=== PATIENT | female | born 1985 | race Caucasian/White ===

== ENCOUNTER 2024-02-09 12:54 | Outpatient (CLI) | payer BC, SELFPAY ==
[2024-02-09 13:30] VITALS: BP 123/83; PULSE 93
[2024-02-09 13:45] VITALS: BP 113/73; PULSE 94
[2024-02-09 13:50] LABS: Basophils Percent Auto 0.3 % (0.2-1.2); Eosinophils Absolute Auto 0.1 K/mm3 (0-0.3); Eosinophils Percent Auto 0.7 % (0-4.4); Hematocrit 32.2 % (37.0-47.0); Hemoglobin 10.4 g/dL (12.0-15.0); Immature Granulocyte Absolute 0.05 K/mm3 (0.00-0.031); Immature Granulocyte Percent A 0.5 % (0-0.5); Lymphocytes Absolute Auto 1.42 K/mm3 (0.9-3.2); Lymphocytes Percent Auto 14.7 % (18.3-44.2); Mean Corpuscular HGB Conc 32.3 g/dl (32-36); Mean Corpuscular Hemoglobin 29.4 pg (26-34); Mean Platelet Volume 9.4 fl (7.4-10.4); Monocytes Absolute Auto 1.1 K/mm3 (0.1-0.6); Neutrophils Percent Auto 72.8 % (45.5-73.1); Platelet Count Result 246 k/mm3 (150-375); Red Blood Count 3.54 M/mm3 (4.2-5.4); Red Cell Distribution Width 12.3 % (11.5-14.5); White Blood Count 9.7 K/mm3 (4.5-10.0)
[2024-02-09 13:51] LABS: Appearance Urine Clear (Clear); Bilirubin Urine Negative (Negative); Blood Urine Negative (Negative); Color Urine Yellow (Yellow); Glucose Urine UA Negative (Negative); Ketones Urine Negative (Negative); Leukocyte Esterase Ur Negative LEU/UL (Negative); Nitrate Urine Negative (Negative); Protein Urine Negative (Negative); Specific Grav Ur 1.024 (1.001-1.035); Urobilinogen Urine 0.2 mg/dL (<2.0); pH Urine 6.5 (5.0-9.0)
[2024-02-09 13:54] LABS: Add Urine Microscopic? NO
[2024-02-09 14:00] LABS: Alanine Aminotransferase 10 U/L (6-35); Albumin Level 3.5 g/dL (3.5-5.1); Alkaline Phosphatase 249 U/L (38-126); Anion Gap 5 mmol/L (4-12); Aspartate Amino Transferase 19 U/L (14-36); Bilirubin,Total 0.9 mg/dL (0.2-1.3); Blood Urea Nitrogen 7 mg/dL (7-17); Calcium 8.2 mg/dL (8.4-10.2); Carbon Dioxide 21 mmol/L (22-30); Chloride 109 mmol/L (98-107); Estimated Glomerular Filt Rate > 60; Glucose 102 mg/dL (65-110); Potassium 3.7 mmol/L (3.4-5.0); Sodium 135 mmol/L (137-145); Uric Acid 4.2 mg/dL (2.5-7.5)
[2024-02-09 14:36] LABS: Creatinine Urine 145.5 mg/dL
[2024-02-09 14:45] LABS: Total Protein Urine Random < 5 mg/dL; Ur Ttl Prot Creatinine Ratio < 0.03 mg/mg (0-0.20)
[2024-02-09 14:46] VITALS: BP 123/88; PULSE 93
--- NOTE | 2024-02-09 14:56 | PM.OBTRLD ---
OB - Triage/Final Diagnosis Visit Information Date of evaluation: 02/09/24 Reason for evaluation: other ( pruritus) Comments/Additional reasons for admission: I have assessed the risk for this patient, Linda Lauren, and determined that she would benefit from observation care. Evaluation Laboratory results: Laboratory Tests 02/09/24 02/09/24 13:39 13:40 WBC 9.7 RBC 3.54 L Hgb 10.4 L Hct 32.2 L MCV 91.0 MCH 29.4 MCHC 32.3 RDW 12.3 Plt Count 246 MPV 9.4 Immature Gran % (Auto) 0.5 Neut % (Auto) 72.8 Lymph % (Auto) 14.7 L [place] % (Auto) 11.0 H Eos % (Auto) 0.7 Baso % (Auto) 0.3 Lymph # (Auto) 1.42 [place] # (Auto) 1.1 H Eos # (Auto) 0.1 Baso # (Auto) 0.0 Abs Immat Gran (auto) 0.05 H Absolute Neuts (auto) 7.0 H Absolute Nucleated RBC 0.000 Nucleated RBC % 0.0 Sodium 135 L Potassium 3.7 Chloride 109 H Carbon Dioxide 21 L Anion Gap 5 BUN 7 Creatinine 0.50 L Estim Creat Clear Calc Not Reportable Estimated GFR > 60 Glucose 102 Uric Acid 4.2 Calcium 8.2 L Total Bilirubin 0.9 AST 19 ALT 10 Alkaline Phosphatase 249 H Total Protein 6.0 L Albumin 3.5 Urine Color Yellow Urine Appearance Clear Urine pH 6.5 Ur Specific [place] 1.024 Urine Protein Negative Urine Glucose (UA) Negative Urine Ketones Negative Ur Blood (Man) Negative Urine Nitrate Negative Urine Bilirubin Negative Urine Urobilinogen 0.2 Leukocyte Esterase Rfl Negative U Random Total Protein < 5 Urine Creatinine 145.5 Protein/Creat Ratio 2 < 0.03 Vital signs: Vital Signs - 24 hr 02/09/24 13:30 02/09/24 13:45 02/09/24 14:46 Pulse Rate 93 94 93 Blood Pressure 123/83 113/73 Blood Pressure [Left Arm] 123/88
--- NOTE | 2024-02-09 15:51 | PC.NURSE ---
Pt here with c/o itching all over. Also, states she has a history of pre-eclampsia with no high blood pressures or symptoms with this . Dr. Dolores Oliva notified and orders received for labs and NST.
[2024-02-16 14:43] LABS: Chenodeoxycholic Acid 0.7 umol/L (< OR = 3.9); Cholic Acid 1.1 umol/L (< OR = 2.8); Deoxycholic Acid 0.9 umol/L (< OR = 2.3); Total Bile Acids 2.7 umol/L (< OR = 8.3)
== END 2024-02-09 14:50 | disposition home or self-care (01) ==
LOC: ANHOBOP 13:12 → ANHLDR 13:19
PROVIDERS: Visit Provider Obstetrics & Gynecology
DX: O13.9 Gestational [pregnancy-induced] hypertension without significant proteinuria, unspecified trimester (principal)
CPT/HCPCS: 36415; 59025; 80053; 81003; 82542; 82570; 84156; 84550; 85025; 99199

== ENCOUNTER 2024-03-06 22:46 | Inpatient (IN) | payer BC, SELFPAY ==
[2024-03-07] VITALS (230 sets, daily range): BP systolic 67–141; BP diastolic 26–94; PULSE 37–155; RESP 12–16; TEMP 36.3–36.8; O2SAT 84–100; BMI 29.7
[2024-03-07] MEDS: AMPICILLIN 2 GM/NS 100 ML 2 GM/100 ML BAG IVPB (00:15)
[2024-03-07 00:32] LABS: Basophils Percent Auto 0.5 % (0.2-1.2); Eosinophils Percent Auto 0.5 % (0-4.4); Hematocrit 32.3 % (37.0-47.0); Hemoglobin 10.7 g/dL (12.0-15.0); Immature Granulocyte Absolute 0.05 K/mm3 (0.00-0.031); Immature Granulocyte Percent A 0.6 % (0-0.5); Lymphocytes Absolute Auto 1.73 K/mm3 (0.9-3.2); Lymphocytes Percent Auto 19.6 % (18.3-44.2); Mean Corpuscular HGB Conc 33.1 g/dl (32-36); Mean Corpuscular Hemoglobin 28.9 pg (26-34); Mean Corpuscular Volume 87.3 fl (80-100); Mean Platelet Volume 10.4 fl (7.4-10.4); Monocytes Absolute Auto 0.7 K/mm3 (0.1-0.6); Monocytes Percent Auto 8.3 % (2.6-8.5); Neutrophils Absolute Auto 6.3 K/mm3 (1.3-6.7); Neutrophils Percent Auto 70.5 % (45.5-73.1); Platelet Count Result 236 k/mm3 (150-375); Red Cell Distribution Width 13.3 % (11.5-14.5); White Blood Count 8.8 K/mm3 (4.5-10.0)
[2024-03-07] MEDS: LACTATED RINGERS 1,000 ML 125 ML IV CONT (00:53)
--- NOTE | 2024-03-07 00:59 | P.PNAN_ITS ---
Anes - Eval Pre Procedure Procedure: labor epidural Date/Time: 03/07/24 00:59 Surgeon: katie Preop Diagnosis: pain during labor Pre Op Diagnosis: Contractions Patient Data Age: 38 Gender: F Height: Weight: Last Vital Signs Pulse 80 03/07/24 00:46 BP 123/69 03/07/24 00:46 Pulse Ox 99 03/07/24 00:54 Allergies Allergy/AdvReac Type Severity Reaction Status Date / Time metoclopramide [From [facility]] AdvReac Anxiety Verified 02/22/24 15:40 Home Medications Medication Instructions Recorded Confirmed Type buspirone 10 mg tablet 10 mg PO TID PRN Anxiety 02/22/24 02/22/24 History escitalopram oxalate 20 mg tablet 20 mg PO DAILY 02/22/24 02/22/24 History (Lexapro) famotidine 40 mg tablet (Pepcid) 40 mg PO DAILY 02/22/24 02/22/24 History Laboratory Tests 03/07/24 00:23 WBC 8.8 K/mm3 (4.5-10.0) RBC 3.70 L M/mm3 (4.2-5.4) Hgb 10.7 L g/dL (12.0-15.0) Hct 32.3 L % (37.0-47.0) MCV 87.3 fl (80-100) MCH 28.9 pg (26-34) MCHC 33.1 g/dl (32-36) RDW 13.3 % (11.5-14.5) Plt Count 236 k/mm3 (150-375) MPV 10.4 fl (7.4-10.4) Immature Gran % (Auto) 0.6 H % (0-0.5) Neut % (Auto) 70.5 % (45.5-73.1) Lymph % (Auto) 19.6 % (18.3-44.2) [place] % (Auto) 8.3 % (2.6-8.5) Eos % (Auto) 0.5 % (0-4.4) Baso % (Auto) 0.5 % (0.2-1.2) Lymph # (Auto) 1.73 K/mm3 (0.9-3.2) [place] # (Auto) 0.7 H K/mm3 (0.1-0.6) Eos # (Auto) 0.0 K/mm3 (0-0.3) Baso # (Auto) 0.0 K/mm3 (0.0-0.1) Abs Immat Gran (auto) 0.05 H K/mm3 (0.00-0.031) Absolute Neuts (auto) 6.3 K/mm3 (1.3-6.7) Absolute Nucleated RBC 0.000 K/mm3 (0.0-0.012) Nucleated RBC % 0.0 % (0.0-0.2) RPR Pending HIV 1&2 Ab/P24 Ag 4thGn Pending Patient hx anesthesia problems: none Family hx anesthesia problems: none Results Review: All pre-operative results and documents have been reviewed as part of the pre- operative evaluation. [facility] Past Medical History Medical History (Updated 03/07/24 @ 00:59 by Heaven Jiang CRNA) IUP (intrauterine ), incidental Family History Family History (Updated 02/22/24 @ 15:44 by Padmini Ochoa RN) Father Diabetes mellitus Hypertension Social History Social History Substance use: never Spiritual care concerns: No Exam Day of Procedure 03/07/24 00:59
[2024-03-07 01:24] LABS: HIV 1/2 Ab P24 Ag Result Negative (Negative)
[2024-03-07] MEDS: AMPICILLIN 1 GM/NS 50 ML 1 GM/50 ML BAG IVPB ×3 (04:05→12:00)
--- NOTE | 2024-03-07 05:27 | PM.IMHP ---
H&P: HPI History of Present Illness Date/Time: 03/07/24 05:27 Chief Complaint: active Labor term positive blood B strep Narrative: 38 year 3 para 3023 with last menstrual period is 06/12/2023 EDC is 7 presents in active labor at 38 weeks gestation active labor. She is positive for group B strep was relatively uncomplicated. She is anemic and is below issue for. She takes amlodipine Lexapro daily well as 2 or. [facility] Past Medical History Medical History IUP (intrauterine ), incidental Family History Family History Father Diabetes mellitus Hypertension Social History Social History Smoking status: Never smoker Substance use: never Do You Feel Safe in your Home?: Yes Lack of Transportation: No Lack of Food: Sometimes True Current Housing: I Have Housing Concerned About Future Housing: No Difficulty Paying Gas/Electric Bills: No Difficulty Paying for Meds: No Currently Unemployed: No Education: Bachelor's Degree Difficulty w/ Childcare or Family Care: No Spiritual care concerns: No Meds Home Medications and Allergies Home Medications Medication Instructions Recorded Confirmed Type buspirone 10 mg tablet 10 mg PO TID PRN Anxiety 02/22/24 03/07/24 History escitalopram oxalate 20 mg tablet 20 mg PO DAILY 02/22/24 03/07/24 History (Lexapro) famotidine 40 mg tablet (Pepcid) 40 mg PO DAILY 02/22/24 03/07/24 History Allergies Allergy/AdvReac Type Severity Reaction Status Date / Time metoclopramide [From Reglan] AdvReac Anxiety Verified 03/07/24 01:28 Vital Signs Vital Signs - 24 hr 03/07/24 00:29 03/07/24 00:34 03/07/24 00:39 Temperature Pulse Rate 78 Blood Pressure 111/72 Pulse Oximetry 98 99 99 Oxygen Delivery 03/07/24 00:44 03/07/24 00:46 03/07/24 00:49 Temperature Pulse Rate 80 Blood Pressure 123/69 Pulse Oximetry 99 99 Oxygen Delivery 03/07/24 00:54 03/07/24 01:01 03/07/24 01:02 Temperature Pulse Rate 76 Blood Pressure 134/79 Pulse Oximetry 99 100 Oxygen Delivery 03/07/24 01:03 03/07/24 01:05 03/07/24 01:07 Temperature Pulse Rate 74 76 Blood Pressure 101/79 134/75 Pulse Oximetry 100 Oxygen Delivery 03/07/24 01:08 03/07/24 01:11 03/07/24 01:12 Temperature Pulse Rate 75 77 Blood Pressure 124/80 132/73 Pulse Oximetry 100 Oxygen Delivery 03/07/24 01:13 03/07/24 01:16 03/07/24 01:17 Temperature Pulse Rate 86 83 Blood Pressure 119/94 H 119/74 Pulse Oximetry 95 Oxygen Delivery 03/07/24 01:18 03/07/24 01:21 03/07/24 01:22 Temperature Pulse Rate 94 84 Blood Pressure 103/71 99/67 L Pulse Oximetry 100 Oxygen Delivery 03/07/24 01:23 03/07/24 01:26 03/07/24 01:27 Temperature Pulse Rate 81 75 Blood Pressure 104/65 119/72 Pulse Oximetry 98 Oxygen Delivery 03/07/24 01:28 03/07/24 01:31 03/07/24 01:32 Temperature Pulse Rate 74 74 Blood Pressure 123/64 114/70 Pulse Oximetry 97 Oxygen Delivery 03/07/24 01:34 03/07/24 01:35 03/07/24 01:37 Temperature Pulse Rate 79 72 Blood Pressure 87/50 L 114/70 Pulse Oximetry 100 Oxygen Delivery 03/07/24 01:38 03/07/24 01:41 03/07/24 01:42 Temperature Pulse Rate 87 70 Blood Pressure 113/73 111/70 Pulse Oximetry 100 Oxygen Delivery 03/07/24 01:43 03/07/24 01:46 03/07/24 01:52 Temperature Pulse Rate 108 H Blood Pressure 112/55 L Pulse Oximetry 100 100 Oxygen Delivery 03/07/24 01:57 03/07/24 01:57 03/07/24 02:01 Temperature Pulse Rate 80 Blood Pressure 108/36 L Pulse Oximetry 100 100 Oxygen Delivery 03/07/24 02:02 03/07/24 02:07 03/07/24 02:12 Temperature Pulse Rate Blood Pressure Pulse Oximetry 100 99 99
[2024-03-07] MEDS: FAMOTIDINE 20 MG/2 ML VIAL IV PUSH (05:50)
[2024-03-07] MEDS: diphenhydrAMINE HCl INJ 50 MG/ML VIAL 25 MG IV PUSH (06:14)
--- NOTE | 2024-03-07 08:08 | PM.OBPNLAB ---
Pain Control Date/time seen: 03/07/24 08:08 Pain control: tolerating well and epidural Pelvic Exam Dilation (cm): 4 Effacement (%): 90 station: -2 Amniotic membrane status: Leaking
[2024-03-07] MEDS: OXYTOCIN 30 UNITS/NS 500 ML 30 UNITS/500 ML BAG IV CONT (08:26)
[2024-03-07] MEDS: DEXTROSE 5%/LACTATED RINGERS 1,000 ML 999 ML IV CONT (08:31)
[2024-03-07] MEDS: ESCITALOPRAM OXALATE 10 MG TABLET 20 MG PO (08:34)
[2024-03-07] MEDS: busPIRone HCL 10 MG TABLET 20 MG PO (08:34)
[2024-03-07 11:37] LABS: Rapid Plasma Reagin Non-Reactive (NonReactive)
--- NOTE | 2024-03-07 12:29 | PM.OBPNLAB ---
Pain Control Date/time seen: 03/07/24 12:29 Pain control: tolerating well and epidural Pelvic Exam Dilation (cm): 4 Effacement (%): 90 station: -2 Amniotic membrane status: Leaking Contractions Monitor mode: Internal
[2024-03-07] MEDS: METHYLERGONOVINE MALEATE 0.2 MG/ML VIAL IM (13:22)
--- NOTE | 2024-03-07 13:30 | PM.DS ---
DS: Admitting Diagnosis Discharge Date 03/09/2024 Admitting Diagnosis term desires sterilization DS: Discharge Diagnosis Discharge Diagnosis (1) Positive testing for group B Streptococcus: Code(s): B95.1 - Streptococcus, group B, as the cause of diseases classified elsewhere Status: Acute (2) Term : Code(s): Z34.90 - Encounter for supervision of normal , unspecified, unspecified trimester Status: Acute (3) Sterilization: Code(s): Z30.2 - Encounter for sterilization Status: Acute DS: Summary Hospital Course Reason for hospitalization: patient was admitted in active labor at38+ weeks gestation with positive group B strep in underwent spontaneous vaginal delivery with epidural anesthesia an adequate sterilization on 03/06/2024 Hospital Course: her hospital course unremarkable. She was sterilized in 620. She remained afebrile. She was up, voiding without difficulty, eating regular diet, ambulating, generally without complaints. Time Spent with Patient Time attestation: Total time spent providing and/or coordinating discharge services: Exam Const: General: cooperative, healthy appearing and comfortable Nutritional Appearance: average body habitus Orientation/consciousness: oriented to person, oriented to place and oriented to time Resp: Effort & Inspection: normal respiratory effort Cardio: Rate: regular rate Rhythm: regular rhythm Heart sounds: S1 normal heart sound present and S2 normal heart sound present GI: Inspection: normal to inspection and incision ( Clean dry and intact) DS: Data Data Completed and Pending Labs on day of discharge: Labs from last 24 hours 03/07/24 00:23 WBC 8.8 RBC 3.70 L Hgb 10.7 L Hct 32.3 L MCV 87.3 MCH 28.9 MCHC 33.1 RDW 13.3 Plt Count 236 MPV 10.4 Immature Gran % (Auto) 0.6 H Neut % (Auto) 70.5 Lymph % (Auto) 19.6 [place] % (Auto) 8.3 Eos % (Auto) 0.5 Baso % (Auto) 0.5 Lymph # (Auto) 1.73 [place] # (Auto) 0.7 H Eos # (Auto) 0.0 Baso # (Auto) 0.0 Abs Immat Gran (auto) 0.05 H Absolute Neuts (auto) 6.3 Absolute Nucleated RBC 0.000 Nucleated RBC % 0.0 RPR Non-reactive HIV 1&2 Ab/P24 Ag 4thGn Negative Blood Type O Positive Antibody Screen Negative Discharge Plan Discharge Attending physician on discharge: Reyes Huggins Discharging Clinician: Tisha Patton Patient Disposition: Home, Self-Care Activity: may shower, no driving and pelvic rest Diet: heart healthy Discharge Instructions: Education: Mom and Baby Guide and Preeclampsia Handout Given to: Mother Follow-Up: Call your delivering provider's office for an appointment to be seen in: 1 Week Mom and baby should come to the [facility] for the follow-up appointment. Appointment Date/Time: March 11, 2024 at 8:00 am What to expect at your follow-up visit: Physical Assessment Call [phone] if you are unable to keep your appointment time. BREAST CARE: * Wear a snug supportive bra. * For engorgement discomfort: Bottle Feeding: * May apply ice packs ABDOMINAL INCISION: (if applicable) * Allow incision to air dry * Do NOT use lotions for powders on your incision * When showering, allow soap and water to run over the incision, but do not wash incision EPISIOTOMY/PERINEAL CARE: * Until bleeding stops, use your kaylie bottle after urinating * Change your pad frequently throughout the day * You may take sitz baths several times a day (fill your bathtub with warm water and soak for 20 minutes.) Do NOT bathe in the water * No tub baths until seen by your physician - You may shower ACTIVITY: * Rest as much as possible. * Do not exercise or lift anything heavier than your baby (such as laundry or other children.) * Avoid stairs or driving as much as possible. * Do not put anything into the vagina. No douching, tampons, or sexual activity until se
--- NOTE | 2024-03-07 13:34 | PM.OBPRVD ---
OB - Vaginal Delivery Note Procedure Delivery date: 03/07/24 Events: Positive Group B Strep (GBS) Induction method: None Delivery monitor: External FHT and Internal Uterine Episiotomy description: None Laceration Description: None Anesthesia type: Epidural Disposition: Floor Complications: No immediate complications Baby Date of : 03/07/24 Time of : 13:17 Weeks of gestation at delivery: 38 gender: Female presentation: vertex position: Right Occiput Anterior Placenta delivery description: Spontaneous Cord Vessel Description: 3 Vessels score one minute: 7 score five minutes: 9 Narrative: amp x 3
[2024-03-07] MEDS: OXYTOCIN 30 UNITS/NS 500 ML 30 UNITS/500 ML BAG 125 UNITS IV CONT (13:55)
[2024-03-07] MEDS: IBUPROFEN 600 MG TABLET PO ×2 (15:12→21:13)
[2024-03-07] MEDS: WITCH HAZEL 40 PADS 1 PAD TOPICAL (15:35)
[2024-03-07] MEDS: BENZOCAINE 20% AER SPR (*SP) 56 GM CAN 1 SPRAY TOPICAL (15:35)
--- NOTE | 2024-03-07 16:00 | OBPPTRN ---
Patient transferred to post room #292 via wheelchair. Support person present. Oriented to unit, room, information board, rooming in, admission packet and security measures. Patient verbalizes understanding.
[2024-03-07] MEDS: ACETAMINOPHEN 325 MG TABLET 650 MG PO (16:49)
[2024-03-07] MEDS: DOCUSATE SODIUM 100 MG CAPSULE PO (16:49)
[2024-03-07] MEDS: DIBUCAINE 1% OINTMENT 30 GM TUBE 1 APPLIC TOPICAL (16:50)
[2024-03-08] VITALS (10 sets, daily range): BP systolic 101–132; BP diastolic 56–91; PULSE 62–119; RESP 12–20; TEMP 36.2–37; O2SAT 95–100
[2024-03-08 05:23] LABS: Hematocrit 28.6 % (37.0-47.0); Hemoglobin 9.1 g/dL (12.0-15.0)
--- NOTE | 2024-03-08 05:39 | WPDHPUPDATE1 ---
History and Physical Update Update Date/Time: 03/08/24 05:39 History and Physical has been reviewed, including an updated exam of the patient. There are NO changes in the patient's condition. Risks, benefits, and alternatives have been discussed and questions answered. Patient agrees to proceed with procedure.
--- NOTE | 2024-03-08 07:20 | P.PNOB_ITS ---
OB - PN: Subj Subjective Date/time seen: 03/08/24 07:20 Patient comments: no complaints and pain well controlled baby status: doing well [place] feeding status: other (btl discussed) OB - PN: Obj Data Labs 03/08/24 04:42 Labs: Laboratory Results - last 24 hr 03/07/24 03/08/24 00:23 04:42 Hgb 9.1 L Hct 28.6 L RPR Non-reactive OB - PN A/P Plan day: 1 Plan: routine care Comments: proceed with pp btl Time Spent With Patient Time: Total time spent is greater than 50% in coordination of care (as documented) at patient's floor/unit and/or counseling patient: Time with patient: less than 15 minutes Exam Const: General: cooperative, healthy appearing and comfortable Nutritional Appearance: average body habitus Orientation/consciousness: oriented to person, oriented to place and oriented to time HENMT: Head: normal to inspection Resp: Effort & Inspection: normal respiratory effort Cardio: Rate: regular rate Rhythm: regular rhythm Heart sounds: S1 normal heart sound present and S2 normal heart sound present GI: Inspection: normal to inspection
[2024-03-08] MEDS: POLYSACCHARIDE IRON COMPLEX 150 MG CAPSULE PO ×2 (07:34→16:42)
[2024-03-08] MEDS: IBUPROFEN 600 MG TABLET PO ×3 (07:34→20:59)
[2024-03-08] MEDS: DOCUSATE SODIUM 100 MG CAPSULE PO ×2 (07:34→16:42)
[2024-03-08] MEDS: busPIRone HCL 10 MG TABLET 20 MG PO (10:31)
[2024-03-08] MEDS: ESCITALOPRAM OXALATE 10 MG TABLET 20 MG PO (10:33)
[2024-03-08] MEDS: ACETAMINOPHEN 325 MG TABLET 650 MG PO (10:33)
--- NOTE | 2024-03-08 12:02 | PC.NURSE ---
To OR per stretcher, IV saline locked.
--- NOTE | 2024-03-08 12:36 | WPDANESEPPF ---
Anes - Initial Pre Proc Eval Procedure: Operation Date: 03/08/24 14:30 Proposed Procedures p Post- Tubal Ligation - Reyes Oliva MD Date/Time: 03/08/24 12:36 Surgeon: Reyes Oliva MD Pre Op Diagnosis: Contractions, desires sterilization Patient Data Age: 38 Gender: F Height: 1.6 m Weight: 76 kg Last Vital Signs Temp 98.3 F 03/08/24 07:30 Pulse 72 03/08/24 07:30 Resp 16 03/08/24 07:30 BP 117/56 L 03/08/24 07:30 Pulse Ox 95 03/08/24 07:30 O2 Del Method Room Air 03/08/24 07:30 Allergies Allergy/AdvReac Type Severity Reaction Status Date / Time metoclopramide [From Reglan] AdvReac Anxiety Verified 03/08/24 12:21 Home Medications Medication Instructions Recorded Confirmed Type buspirone 10 mg tablet 10 mg PO TID PRN Anxiety 02/22/24 03/07/24 History escitalopram oxalate 20 mg tablet 20 mg PO DAILY 02/22/24 03/07/24 History (Lexapro) famotidine 40 mg tablet (Pepcid) 40 mg PO DAILY 02/22/24 03/07/24 History hydrocodone 5 mg-acetaminophen 325 1 tablet PO Q4H PRN pain #20 tabs 03/07/24 Rx mg tablet hydrocodone 5 mg-acetaminophen 325 1 tablet PO Q4H PRN pain #20 tabs 03/08/24 Rx mg tablet Laboratory Tests 03/08/24 04:42 Hgb 9.1 L g/dL (12.0-15.0) Hct 28.6 L % (37.0-47.0) Patient hx anesthesia problems: none Family hx anesthesia problems: none Results Review: All pre-operative results and documents have been reviewed as part of the pre-operative evaluation. [facility] Past Medical History Medical History IUP (intrauterine ), incidental Family History Family History Father Diabetes mellitus Hypertension Social History Social History Smoking status: Never smoker Substance use: never Do You Feel Safe in your Home?: Yes Lack of Transportation: No Lack of Food: Sometimes True Current Housing: I Have Housing Concerned About Future Housing: No Difficulty Paying Gas/Electric Bills: No Difficulty Paying for Meds: No Currently Unemployed: No Education: Bachelor's Degree Difficulty w/ Childcare or Family Care: No Spiritual care concerns: No Anes - Eval Final PreProcedure Day of Procedure 03/08/24 12:36 Patient weight: overweight Heart: regular rate and rhythm Lungs: clear to auscultation Airway: Mallampati scale class II Neurological: alert and oriented Last oral intake: >/= 8 hours ASA classification: II Emergent: no Anesthetic plan: proceed Anesthesia type and monitoring: regional (Pt w epidural in place since delivery approx 24 hours ago. Plan epidural anesthesia, [place] as back up discussed w pt. ) epidural and standard monitoring Results Review: All pre-operative results and documents have been reviewed as part of the pre-operative evaluation. Informed Consent: The patient's anesthetic plan and its attendant risks and benefits were discussed with the patient/family/POA. Questions were solicited and answers provided to the satisfaction of the patient/family/POA.
[2024-03-08] MEDS: LIDOCAINE HCL 1% LOCAL INJ 20 ML VIAL 6 ML INFILTRATE (13:25)
[2024-03-08] MEDS: LACTATED RINGERS 1,000 ML 30 ML IV CONT (13:32)
--- NOTE | 2024-03-08 13:32 | P.OP_ITS ---
Procedure Note - Detailed Date of Procedure 03/08/24 Pre-op Diagnosis Contractions, desires sterilization Post-op Diagnosis Same Procedure Performed tubal ligation via modified [place] method Surgeon Reyes Oliva MD Anesthesia General Indications this is a 38-year-old multiparous patient day 1 who desires permanent sterilization Findings uterus. Normal-appearing tubes and ovaries Description of Procedure patient was prepped draped in the normal sterile fashion placed in the supine position. Under excellent general trach anesthesia a incision was made in the infraumbilical area. This was incised through layers of fascia fashion incised in upward outward fashion bilaterally prior peritoneum awakened clamped and by sharp dissection. The left fallopian tube was grasped in its midportion traverse to its fimbriated in read traversed to the midportion and a good knuckle of tube free tied with 0 chromic the peritoneum between was pierced and the distal and proximal legs free tied with 0 chromic followed by removal of that piece of tissue with Metzenbaum scissors. It was passed off and marked as portion of left fallopian tube. Hemostasis was assured in the tube returned to the abdomen. In similar fashion the right fallopian tube was grasped was midportion traversed to its distal portion and traverse back to the midportion a good knuckle of tube free tied with 0 chromic the peritoneum pierced in the distal and proximal legs were free tied with 0 chromic portion between cut and passed off as portion of right fallopian tube. Hemostasis was assured this returned the abdomen the fascia was then closed with continuous running 0 Vicryl from lateral edge to lateral edge. Irrigation undertaken to clear the skin was closed with 4 Monocryl and glue blood loss estimated 5cc all sponge, needle, instrument counts were correct. There were no immediate complications Estimated Blood Loss 5 Drains No Packing No Pathology Yes Complications No immediate complications Condition Stable Disposition PACU
[2024-03-08] MEDS: ONDANSETRON INJ 4 MG/2 ML VIAL IV PUSH (13:45)
[2024-03-08] MEDS: fentaNYL CITRATE INJ (*CRX) 100 MCG/2 ML VIAL 25 MCG IV PUSH ×6 (13:51→14:09)
--- NOTE | 2024-03-08 14:30 | PC.NURSE ---
Returned from OR per stretcher. Report received from NADIRA Mina.
[2024-03-08] MEDS: HYDROcodone/acetaminophen (*CRX) 5-325 MG TABLET 1 TAB PO (14:59)
[2024-03-08] MEDS: MORPHINE SULFATE (*CRX) 2 MG/ML INJ IV PUSH (16:41)
[2024-03-08] MEDS: HYDROcodone/acetaminophen (*CRX) 10-325 MG TABLET 1 TAB PO (20:58)
[2024-03-09] MEDS: ACETAMINOPHEN 325 MG TABLET 650 MG PO ×2 (03:04→08:33)
[2024-03-09] MEDS: IBUPROFEN 600 MG TABLET PO ×2 (03:04→08:33)
[2024-03-09 03:23] VITALS: BP 118/80; PULSE 63; RESP 16; TEMP 36.7; O2SAT 100
[2024-03-09 04:52] LABS: Hematocrit 28.4 % (37.0-47.0); Hemoglobin 8.9 g/dL (12.0-15.0)
[2024-03-09 08:30] VITALS: BP 121/74; PULSE 65; RESP 18; TEMP 36.9
[2024-03-09] MEDS: ESCITALOPRAM OXALATE 10 MG TABLET 20 MG PO (08:32)
[2024-03-09] MEDS: busPIRone HCL 10 MG TABLET 20 MG PO (08:32)
[2024-03-09] MEDS: POLYSACCHARIDE IRON COMPLEX 150 MG CAPSULE PO (08:33)
[2024-03-09] MEDS: DOCUSATE SODIUM 100 MG CAPSULE PO (08:33)
[2024-03-09] MEDS: MULTIVIT/MIN/PREN/FOL AC/IRON TABLET 1 TAB PO (08:33)
--- NOTE | 2024-03-09 08:59 | PM.OBPNVD ---
OB - PN: Subj Subjective Date/time seen: 03/09/24 08:59 Interval history: Doing well post tubal and vaginal delivery. Pain well controlled. OB - PN: Obj Data Labs 03/09/24 03:05 Labs: Laboratory Results - last 24 hr 03/09/24 03:05 Hgb 8.9 L Hct 28.4 L OB - PN A/P Assessment and Plan (1) Sterilization: Code(s): Z30.2 - Encounter for sterilization Status: Acute Assessment and Plan: s/p pp BTL Pain under good control Plan day: 2 Plan: routine care and discharge home Time Spent With Patient Time: Total time spent is greater than 50% in coordination of care (as documented) at patient's floor/unit and/or counseling patient: Exam Narrative: inc c/d/i : Bimanual exam- vagina & uterus: other (Uterus firm, nt @U)
--- NOTE | 2024-03-09 10:50 | PC.NURSE ---
Patient instructed on viewing the discharge video Mother & Baby Care, The First Two Weeks online. Patient was given the opportunity and encouraged to ask questions. Patient verbalized understanding of information shared and has been given the mother/baby guide for home reference.
[2024-03-09] MEDS: HYDROcodone/acetaminophen (*CRX) 5-325 MG TABLET 1 TAB PO (13:08)
[2024-03-09] MEDS: SIMETHICONE 80 MG TAB.CHEW PO (13:10)
== END 2024-03-09 14:50 | disposition home or self-care (01) | DRG 798 ==
LOC: ANHLDR 03-07 13:46 → ANHOB2 03-07 16:44
PROVIDERS: Admitting Provider Obstetrics & Gynecology; Visit Provider Obstetrics & Gynecology
PROC: 0UB70ZZ Excision of Bilateral Fallopian Tubes, Open Approach (ICD-10-PCS; CPT 58605; principal; 2024-03-08 14:30)
DX: O62.3 Precipitate labor (principal); Z37.0 Single live birth; Z3A.38 38 weeks gestation of pregnancy; O99.824 Streptococcus B carrier state complicating childbirth; O99.02 Anemia complicating childbirth; D64.9 Anemia, unspecified; Z30.2 Encounter for sterilization
CPT/HCPCS: 36415; 85014; 85018; 85025; 86592; 86703; 86850; 86900; 86901; 88302; A9270; G0432; J0290; J0330; J1200; J2001; J2210; J2270; J2405; J2590; J2704; J2795; J3010; J7120; J7121